=== PATIENT | female | born 1980 | race Caucasian/White ===

== ENCOUNTER → 2017-03-12 | Outpatient (CLI) | payer OTHER ==
[~2017-03-12] MED LIST: AMITRYPTYLINE PO; CIPRO PO; CIPRO750 MG PO; GREEN TEA; HUMIBID-LA600 MG PO; IBUPROFEN100 MG PO; LANTUS100 U/ML SUBQ; LEVEMIR100 UNITS/ SQ; LEVEMIR100 UNITS/ SUBQ; NAPROXEN PO; NEPHROCAPS CAPSU1 MG PO; NICOTINE PATCH1 EACH TD; NOVOLOG100 U/ML SUBQ; NOVOLOG100 UNITS/; PAXIL10 MG PO; PAXIL40 MG; PHENERGAN25 MG PO; SIMETHICONE GA125 MG PO; TORADOL10 MG PO; TYLOX 5/500 CAP1 CAP PO; ZOLOFT PO; [UNRECOGNIZED DRUG - SUPPLY]
--- NOTE | ~2017-03-12 | CR242 ---
[facility] A Service of [facility] & [facility] RADIOLOGY TEXT RESULTS PATIENT: RHETT PEDRAZA LOCATION: [facility] : 76 UNIT #: [id number] AGE: [address]: RIZWANA CHAMBERS SEX: F ORDER DR: [id number] [facility] [address] [place], [place] [address] [id number] O MR#: [id number] Acc #: [id number] NAME: RHETT PEDRAZA : 1980 SEX: F STUDY DATE/TIME: 03/12/2017 17:01 UNIT: [facility] ROOM: STUDY DESCRIPTION: CR Thoracic Spine 2 Views Attending Physician: Rizwana Chambers Referring Physician: Rizwana Chambers Ordering Physician: Physician Non-Staff Primary Care Physician: Missy Narvaez M.D. MEDICAL IMAGING REPORT This report is preliminary unless electronic signature is present EXAM Thoracic spine series of 03/12/2017 HISTORY Degenerative disc disease. Neuropathy, chest pain, back pain. 1 week duration. Over did it on lifting at her daughter's birthday constitution party. FINDINGS AP and lateral radiographs of the thoracic spine are presented. Comparison 11/12/2013. There is a mild levoscoliosis upper thoracic spine. This is stable. There is a new wedge compression deformity of the T7 vertebral body. This has developed in the interval from 11/12/2013. Overall chronicity unclear. It is more pronounced anteriorly with about 19% loss of height anteriorly relative to normal height T6. There is stable mild compression deformity superior aspect T12 and superior aspect L1. Other vertebral body heights normal. Intervertebral disc space heights within normal limits. The visualized ribs are intact. The central lung zones are clear. The heart is [id number] limits of normal in size. The visualized bowel gas pattern is normal. IMPRESSION 1. Please see the complete dictation above for full details. Mild superior vertebral body compression deformities at T12 and L1 are stable compared to 2013. There is a new approximately 19% anterior wedge compression deformity of the T7 vertebral body which has developed in the interval from 2013. Overall chronicity is unclear. I see no underlying bony destructive process. Please correlate with any known trauma. The development of this wedge compression deformity seems unusual in this relatively young patient. Correlate with risk factors. It would assist in management, thoracic spine could be further evaluated with MRI if patient is candidate or with STS. [facility] A Service of [facility] & [facility] RADIOLOGY TEXT RESULTS PATIENT: RHETT PEDRAZA LOCATION: [facility] : 76 UNIT #: [id number] AGE: [address]: RIZWANA CHAMBERS SEX: F ORDER DR: CT. 2. Stable mild levoscoliosis upper thoracic spine. 3. Please see remainder of ancillary findings in body of report above. Dictated by... Victorino Patel M.D. THIS IS AN ELECTRONICALLY VERIFIED REPORT Victorino Patel M.D. at 03/13/2017 6:04 PM Cha TD: 03/13/2017 11:06 JOB #: [id number] MEDICAL IMAGING REPORT Page 1 of 1 COPY
--- NOTE | ~2017-03-12 | CR61 ---
[facility] A Service of [facility] & [facility] RADIOLOGY TEXT RESULTS PATIENT: RHETT PEDRAZA LOCATION: [facility] : 76 UNIT #: [id number] AGE: [address]: RIZWANA CHAMBERS SEX: F ORDER DR: [id number] [facility] [address] [place], [place] [address] [id number] O MR#: [id number] Acc #: [id number] NAME: RHETT PEDRAZA : 1980 SEX: F STUDY DATE/TIME: 03/12/2017 17:00 UNIT: [facility] ROOM: STUDY DESCRIPTION: CR Cervical Spine Min 5 Views Attending Physician: Rizwana Chambers Referring Physician: Rizwana Chambers Ordering Physician: Physician Non-Staff Primary Care Physician: Missy Narvaez M.D. MEDICAL IMAGING REPORT This report is preliminary unless electronic signature is present EXAM Cervical spine, 5 views, 03/12/2017, [facility]. HISTORY 37-year-old woman with a history of neuropathy, chest pain, back pain and neck stiffness x1 week. COMPARISON Cervical spine, 11/12/2013. FINDINGS AP, lateral, lateral flexion and extension and open-mouth odontoid views are provided. Images are compared to the previous cervical spine exam dated 11/12/2013. There is a continuing reversal of cervical curve with somewhat exaggerated lordosis now present. Posterior alignment is preserved. Lateral flexion and extension views demonstrate normal range of motion with no subluxation. Posterior elements are intact. Vertebral body heights and disc spaces are maintained. The odontoid is normal. IMPRESSION Mild reversal of the normal cervical curve. This is previously noted 11/12/2013. Cervical spine appears otherwise normal with normal flexion and extension views. No subluxation. Dictated by... Osmany Acuna M.D. THIS IS AN ELECTRONICALLY VERIFIED REPORT Osmany Acuna M.D. at 03/13/2017 1:19 PM STEPHANIE/kt TD: 03/13/2017 12:01 JOB #: [id number] [facility] A Service of [facility] & [facility] RADIOLOGY TEXT RESULTS PATIENT: RHETT PEDRAZA LOCATION: [facility] : 76 UNIT #: [id number] AGE: [address]: RIZWANA CHAMBERS SEX: F ORDER DR: MEDICAL IMAGING REPORT Page 1 of 1 COPY
--- NOTE | ~2017-03-12 | CR184 ---
[facility] A Service of [facility] RADIOLOGY TEXT RESULTS PATIENT: RHETT PEDARZA LOCATION: [facility] : 76 UNIT #: [id number] AGE: [address]: NEVA CHAMBERS SEX: F ORDER DR: [id number] [facility] [address] [place], [place] [address] [id number] O MR#: [id number] Acc #: [id number] NAME: RHETT PEDRAZA : 1980 SEX: F STUDY DATE/TIME: 03/12/2017 17:02 UNIT: [facility] ROOM: STUDY DESCRIPTION: CR Lumbar Spine Min 4 Views Attending Physician: Josy Chambers Aprn Referring Physician: Josy Chambers Aprn Ordering Physician: Octavio Not Listed Primary Care Physician: Missy Narvaez M.D. MEDICAL IMAGING REPORT This report is preliminary unless electronic signature is present EXAM Lumbar spine series, 03/12/2017, HISTORY Degenerative disc disease. Neuropathy, chest pain, back pain, stiffness 1 week duration. "Over-did it" on lifting at her daughter's birthday alliance party TECHNIQUE AP, lateral, and voluntary lateral flexion/extension views of the lumbar spine are presented. FINDINGS There are 5 lumbar-type vertebral segments. There is a mild levoscoliosis centered at the L3 vertebral body level. There is a very mild loss of height at the T12 vertebral body involving its superior half. There is mild loss of height, superior L1 vertebral body, more pronounced centrally. This could be a reflection of superior endplate Schmorl node. There is mild generalized loss of height in the L5 vertebral body secondary to degenerative change along the inferior endplate. The L2-L3 vertebral body heights are normal. The intervertebral disc space heights show mild narrowing at T12-L1 and L5-S1. Small posterior osteophyte formations suggested L5-L1. Facet joint relationships are normal with mild facet degenerative changes L4-L5, L5-S1. Alignment in the lateral projection is normal on neutral voluntary flexion and extension views. There is no abnormal change in alignment with voluntary flexion and extension. Visualized bony pelvis is unremarkable. Visualized bowel gas pattern is normal. Dictated by... Victorino Patel M.D. [facility]. [facility] A Service of [facility] RADIOLOGY TEXT RESULTS PATIENT: RHETT PEDRAZA [id number] [birth year] UNIT #: [id number] AGE: [address]: NEVA CHAMBERS SEX: F ORDER DR: THIS IS AN ELECTRONICALLY VERIFIED REPORT Victorino Patel M.D. at 03/13/2017 6:04 PM SAGRARIO/drea TD: 03/13/2017 11:04 JOB #: [id number] MEDICAL IMAGING REPORT Page 1 of 1 COPY
== END | disposition home or self-care (01) ==
LOC: CRAD 16:31
DX: M51.36 Other intervertebral disc degeneration, lumbar region (principal); M54.2 Cervicalgia; M54.6 Pain in thoracic spine; M41.9 Scoliosis, unspecified; M48.56XA Collapsed vertebra, not elsewhere classified, lumbar region, initial encounter for fracture
CPT/HCPCS: 72050; 72070; 72110